=== PATIENT | female | born 1980 | race Two or more races ===

== ENCOUNTER 2019-07-16 08:22 | Day surgery (SDC) | payer OTHER ==
[2019-07-13 12:40] VITALS: BMI 35.6
[2019-07-16] MEDS ORDERED: MIDAZOLAM HCL 2 MG/2 ML SINGLE DOSE VIAL ONE (10:16)
[2019-07-16] MEDS ORDERED: EPINEPHrine 1:1,000 1 MG/1 ML - 30ML VIAL (INJECTION) ONE (10:18)
[2019-07-16] MEDS ORDERED: BUPIVACAINE HCL/PF 2.5 MG/ML - 30 ML VIAL IJ ONE (10:18)
[2019-07-16] MEDS ORDERED: GLYCOPYRROLATE 0.2 MG/1 ML VIAL ONE (10:42)
[2019-07-16] MEDS ORDERED: ESMOLOL HCL 100,000 MCG/10 ML VIAL ONE (10:43)
[2019-07-16] MEDS ORDERED: KETOROLAC TROMETHAMINE 30 MG/1 ML VIAL ONE (10:44)
[2019-07-16] MEDS ORDERED: ONDANSETRON 4 MG/2 ML VIAL IVPUSH PRN (11:45)
[2019-07-16] MEDS ORDERED: PROPOFOL 20 ML ONE ×2 (12:30)
--- NOTE | 2019-07-16 13:11 | OP ---
DATE OF OPERATION: 07/16/2019 Done at [facility] SURGEON: Dahlia Lyn MD CERTIFIED ADDICTION COUNSELOR: None. PREOPERATIVE DIAGNOSES: 1. Right knee medial and lateral meniscal tear. 2. Right knee cartilage injury. 3. Right knee synovitis. POSTOPERATIVE DIAGNOSES: 1. Right knee medial and lateral meniscal tear. 2. Right knee cartilage injury. 3. Right knee synovitis. PROCEDURE: 1. Right knee arthroscopy, partial meniscectomy medial and lateral meniscus, CPT code 14307. 2. Right knee arthroscopy with chondroplasty and abrasion-plasty, CPT code 90548. 3. Right knee arthroscopy with synovectomy, CPT code 75843. FINDINGS: 1. Medial meniscus posterior horn tear to central body, minor. 2. Lateral meniscus anterior 1/3, inner 2/3. 3. Synovitis patellofemoral medial and lateral notch area. 4. Minor grade 1-2 cartilage injury anterior medial femoral condyle with grade 2-3 cartilage injury central medial femoral condyle with cartilage flap. 5. ACL and PCL intact. 6. Minor, diffuse grade 1-2 changes lateral tibial plateau. 7. Central grade 2-3 cartilage injury central portion of patella central 40% with grade 4 changes medial facet. DESCRIPTION OF PROCEDURE: Informed consent was obtained. The patient came to the operating room, where the lower extremity was prepped and draped in a sterile fashion. A tourniquet was placed on the upper thigh, but not inflated. Using standard arthroscopic technique, a lateral incision and portal was made to allow for introduction of the camera into the suprapatellar bursa. This was then taken to the medial joint line, where under direct visualization, a medial incision and portal was made. Excessive synovium noted in the medial, lateral and patellofemoral and notch area was removed by an upbiter, shaver and Bovie cautery. This was found to bring in inflammatory tissue into the joint surface, a source of pain and dysfunction. Probing of the medial and lateral meniscus found tears, as described in the findings. These were removed with the upbiter and shaver and taken back to a stable rim. Grade 2 to 3 degenerative changes were treated with a chondroplasty, removing all flaking surfaces with low-setting Bovie along the periphery to prevent further flaking. Grade 4 changes, as noted, were treated with an abrasoplasty, creating a bleeding surface at the bone/cartilage interface. Aggressive debridement with shaver/edward created bleeding surface. Micro fracture also done when indicated in findings. All areas of the knee were once again reexamined. The knee was then drained and a single suture was placed in all portals. A sterile dressing was placed and the patient was transferred to the recovery room without complication. The PA listed above was present and assisted at surgery. Their presence was absolutely medically necessary for the completion of the procedure. They helped hold the arthroscopy, pass instruments (and implants when indicated) and the procedure could not have been completed without their assistance. DAHLIA LYN M.D. [id number]
[2019-07-16] MEDS ORDERED: oxyCODONE HCL 5 MG TABLET PO PRN ×2 (13:13)
[2019-07-16 15:19] VITALS: BP 105/68; PULSE 75; TEMP 98
== END 2019-07-16 14:30 | disposition home or self-care (01) ==
LOC: FASU 08:22
PROVIDERS: ATTEND Orthopaedic Surgery
PROC: 0SBC4ZZ Excision of Right Knee Joint, Percutaneous Endoscopic Approach (ICD-10-PCS; 2019-07-16)
PROC: 0SBC4ZZ Excision of Right Knee Joint, Percutaneous Endoscopic Approach (ICD-10-PCS; 2019-07-16)
PROC: 0SBC4ZZ Excision of Right Knee Joint, Percutaneous Endoscopic Approach (ICD-10-PCS; principal; 2019-07-16 11:03)
DX: S83.241A Other tear of medial meniscus, current injury, right knee, initial encounter (principal); S83.281A Other tear of lateral meniscus, current injury, right knee, initial encounter; S83.8X1A Sprain of other specified parts of right knee, initial encounter; M65.861 Other synovitis and tenosynovitis, right lower leg; X58.XXXA Exposure to other specified factors, initial encounter; Y93.9 Activity, unspecified; Y92.9 Unspecified place or not applicable
CPT/HCPCS: 84703; 94760

== ENCOUNTER 2019-11-26 09:21 | Emergency (ER) | payer OTHER ==
[2019-11-26 09:58] VITALS: BP 149/96; PULSE 92; TEMP 98; BMI 28.3
[2019-11-26] MEDS ORDERED: LIDOCAINE 5% TOPICAL PATCH TP ONE ×2 (10:09→10:10)
[2019-11-26] MEDS ORDERED: CYCLOBENZAPRINE HCL 10 MG TABLET (FP) PO ONE (10:09)
[2019-11-26] MEDS ORDERED: IBUPROFEN 600 MG TABLET (FP) PO ONE ×2 (10:09→10:11)
[2019-11-26] MEDS ORDERED: CYCLOBENZAPRINE HCL 10 MG TABLET (FP) ONE (10:11)
[2019-11-26] MEDS ORDERED: LIDOCAINE 5% TOPICAL PATCH ONE (10:11)
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
[2019-11-26] MEDS ORDERED: LIDOCAINE PATCH REMOVAL MC SCH ×2 (22:00)
== END 2019-11-26 12:08 | disposition home or self-care (01) ==
LOC: JERFT 09:21 → SUPCPDRO 09:21 → JERFT 12:08
DX: S39.012A Strain of muscle, fascia and tendon of lower back, initial encounter (principal); V43.52XA Car driver injured in collision with other type car in traffic accident, initial encounter; Y93.89 Activity, other specified; Y92.410 Unspecified street and highway as the place of occurrence of the external cause; Z91.018 Allergy to other foods
CPT/HCPCS: 72040-TC; 72070-TC-FY; 72100-TC-FY; 73030-TC-LT-FY; 99281-25